=== PATIENT | female | born 1995 | race Caucasian/White ===

== ENCOUNTER → 2024-07-29 | Emergency (ER) | payer MEDICAID ==
[~2024-07-29] VITALS: Ht 157.5 cm; Wt 82.0 kg
[~2024-07-29] MED LIST: normal saline 1000ml 1,000 ML IV ONE
[2024-07-29 01:01] VITALS: BP 150/75; PULSE 98; RESP 16; TEMP 98.8; O2SAT 99
== END | disposition home or self-care (01) ==
LOC: ER 01:00
DX: T67.5XXA Heat exhaustion, unspecified, initial encounter (principal); E86.0 Dehydration; X58.XXXA Exposure to other specified factors, initial encounter; Y93.89 Activity, other specified; Y92.89 Other specified places as the place of occurrence of the external cause; Y99.8 Other external cause status
CPT/HCPCS: 99281